=== PATIENT | male | born 1970 | race Caucasian/White ===

== ENCOUNTER 2024-12-26 12:06 | Inpatient (IN) | payer BC ==
[~2024-12-26] VITALS: Ht 177.8 cm; Wt 68.0 kg
[2024-12-26] MEDS: IV NS 0.9% 1,000 ML BAG IV ONE (12:55)
[2024-12-26 13:04] LABS: BASOPHILS % (AUTO) 0.2 % (0.0-2.0); EOSINOPHILS % (AUTO) 0.4 % (0.0-6.0); HEMATOCRIT 30 % (39-51); HEMOGLOBIN 9.4 g/dL (13.5-17.5); MEAN CORPUSCULAR HEMOGLOBIN 24 PG (26.0-33.0); MEAN CORPUSCULAR HGB CONC 32 g/dl (31.0-36.0); MEAN CORPUSCULAR VOLUME 75 fL (80-96); MONOCYTES # (AUTO) 0.9 K/uL (0.1-1.30); NEUTROPHILS # (AUTO) 9.5 K/uL (1.8-8.9); NEUTROPHILS % (AUTO) 82.4 % (43.0-81.0); PLATELET COUNT (AUTO) 418 K/uL (150-450); RED BLOOD CELL COUNT(AUTO) 3.96 MIL/uL (4.5-6.0); RED CELL DISTRIBUTION WIDTH 16.6 % (11.5-15.0); WHITE BLOOD COUNT (AUTO) 11.5 K/uL (4.3-11.0)
[2024-12-26 13:15] LABS: CALCIUM, SERUM 8.4 mg/dL (8.5-10.1); POTASSIUM 4.2 mmol/L (3.5-5.1)
[2024-12-26] MEDS ORDERED: CT SWABBABLE VALVE TRANS SET 1 EA INFUS.SET MC ONE (13:28)
[2024-12-26] MEDS ORDERED: IV NS 0.9% 250 ML IV ONE ×2 (13:28→15:58)
[2024-12-26] MEDS ORDERED: IOHEXOL-300 100 ML VIAL IV ONE ×2 (13:28→15:57)
[2024-12-26 13:30] LABS: ALBUMIN 1.9 g/dL (3.4-5.0); BILIRUBIN,DIRECT 0.2 mg/dL (0.0-0.2); BILIRUBIN,TOTAL 0.4 mg/dL (0.2-1.0); TOTAL PROTEIN, SERUM 6.6 g/dL (6.4-8.2)
[2024-12-26] MEDS ORDERED: AMLO5TAB4 PO (14:36)
[2024-12-26] MEDS ORDERED: Z GUARD REMEDY 4 OZ OINT TP PRN (15:30)
[2024-12-26] MEDS ORDERED: ACETAMINOPHEN 325 MG TABLET PO PRN (15:30)
[2024-12-26] MEDS ORDERED: MAG HYDROX/AL HYDROX/SIMETH 30 ML UDC PO PRN (15:30)
[2024-12-26] MEDS ORDERED: ONDANSETRON HCL/PF 4 MG/2 ML VIAL IVP PRN (15:30)
[2024-12-26] MEDS ORDERED: MAGNESIUM HYDROXIDE 30 ML UDC PO PRN (15:30)
[2024-12-26 15:49] LABS: APPEARANCE,URINE CLEAR (CLEAR); BILIRUBIN,URINE NEGATIVE (NEGATIVE); BLOOD, URINE NEGATIVE Ery/uL (NEGATIVE); COLOR,URINE YELLOW (YELLOW); KETONES,URINE NEGATIVE (NEGATIVE); LEUKOCYTE ESTERASE ,URINE NEGATIVE (NEGATIVE); NITRITE, URINE NEGATIVE (NEGATIVE); PROTEIN,URINE NEGATIVE (NEGATIVE); UGLUCOSE NEGATIVE (NEGATIVE); UROBILINOGEN,URINE 0.2 EU/dL (0.2)
[2024-12-26 16:26] VITALS: BP 126/79; TEMP 99.1; O2SAT 99
[2024-12-26] MEDS: IV NS 0.9% 1,000 ML IV PRN (17:08)
[2024-12-26] MEDS: ZOSYN IVPB 3.375 G in IV D5W 50ml IV SCH (17:38)
[2024-12-27 06:43] LABS: BASOPHILS % (AUTO) 0.2 % (0.0-2.0); EOSINOPHILS # (AUTO) 0.1 K/uL (0.0-0.7); EOSINOPHILS % (AUTO) 1.1 % (0.0-6.0); HEMATOCRIT 28 % (39-51); HEMOGLOBIN 8.9 g/dL (13.5-17.5); LYMPHOCYTES # (AUTO) 1.3 K/uL (0.8-4.8); LYMPHOCYTES % (AUTO) 11.1 % (20.0-44.0); MEAN CORPUSCULAR HEMOGLOBIN 23 PG (26.0-33.0); MEAN CORPUSCULAR HGB CONC 32 g/dl (31.0-36.0); MEAN CORPUSCULAR VOLUME 74 fL (80-96); NEUTROPHILS % (AUTO) 78.6 % (43.0-81.0); PLATELET COUNT (AUTO) 399 K/uL (150-450); RED BLOOD CELL COUNT(AUTO) 3.81 MIL/uL (4.5-6.0); RED CELL DISTRIBUTION WIDTH 16.7 % (11.5-15.0); WHITE BLOOD COUNT (AUTO) 11.5 K/uL (4.3-11.0)
[2024-12-27 07:13] LABS: CALCIUM, SERUM 8.5 mg/dL (8.5-10.1); CREATININE 0.9 mg/dL (0.6-1.3); MAGNESIUM 2.1 mg/dL (1.8-2.4); PHOSPHORUS 3.9 mg/dL (2.5-4.9); POTASSIUM 4.7 mmol/L (3.5-5.1)
[2024-12-27] MEDS: AMLODIPINE BESYLATE 5 MG TABLET PO SCH (08:47)
[2024-12-27 16:00] VITALS: BP 117/78; TEMP 98; O2SAT 99
[2024-12-27 17:47] LABS: INR 1.15 (0.91-1.10); PARTIAL THROMBOPLASTIN TIME 25.1 SEC (24.3-34.3); PROTHROMBIN TIME 12.1 SECS (9.2-11.1)
[2024-12-27 19:00] LABS: THYROID STIMULATING HORMONE 1.74 uIU/mL (0.358-3.74)
[2024-12-27] MEDS: LOPERAMIDE HCL (2 MG CAP) 2 MG CAPSULE PO PRN (21:06)
[2024-12-27 21:59] VITALS: BP 132/86; TEMP 99; O2SAT 97
[2024-12-28 04:51] VITALS: BP 110/69; TEMP 99.7; O2SAT 96
[2024-12-28 07:19] LABS: BASOPHILS % (AUTO) 0.3 % (0.0-2.0); EOSINOPHILS # (AUTO) 0.1 K/uL (0.0-0.7); EOSINOPHILS % (AUTO) 1.1 % (0.0-6.0); HEMATOCRIT 27 % (39-51); HEMOGLOBIN 8.7 g/dL (13.5-17.5); LYMPHOCYTES # (AUTO) 1.1 K/uL (0.8-4.8); LYMPHOCYTES % (AUTO) 11.1 % (20.0-44.0); MEAN CORPUSCULAR HEMOGLOBIN 24 PG (26.0-33.0); MEAN CORPUSCULAR HGB CONC 33 g/dl (31.0-36.0); MEAN CORPUSCULAR VOLUME 74 fL (80-96); NEUTROPHILS # (AUTO) 7.3 K/uL (1.8-8.9); NEUTROPHILS % (AUTO) 77.5 % (43.0-81.0); PLATELET COUNT (AUTO) 375 K/uL (150-450); RED BLOOD CELL COUNT(AUTO) 3.61 MIL/uL (4.5-6.0); RED CELL DISTRIBUTION WIDTH 16.4 % (11.5-15.0); WHITE BLOOD COUNT (AUTO) 9.5 K/uL (4.3-11.0)
[2024-12-28 07:46] LABS: CALCIUM, SERUM 8.1 mg/dL (8.5-10.1); CREATININE 0.9 mg/dL (0.6-1.3); PHOSPHORUS 4.1 mg/dL (2.5-4.9); POTASSIUM 3.8 mmol/L (3.5-5.1)
[2024-12-28 08:00] VITALS: BP 124/73; TEMP 98.3; O2SAT 95
[2024-12-28 16:00] VITALS: BP 122/78; TEMP 98.8; O2SAT 95
[2024-12-28] MEDS ORDERED: SOD FERRIC GLUC 125 MG in IV NS 0.9% 100 ML IV SCH (17:00)
[2024-12-28] MEDS: FERRLICET 125MG in 100 ML NS IVPB IV ONE (17:47)
[2024-12-28] MEDS: PEG 3350/NA SULF,BICARB,CL/KCL 4,000 ML BOTTLE PO ONE (18:26)
[2024-12-28 22:00] VITALS: BP 128/70; TEMP 98.2; O2SAT 99
[2024-12-29 04:00] VITALS: BP 120/60; TEMP 98.2; O2SAT 100
[2024-12-29] MEDS ORDERED: FENTANYL PF 100MCG/2ML AMPUL ONE (07:32)
[2024-12-29] MEDS ORDERED: MIDAZOLAM HCL 2 MG/2ML VIAL ONE (07:32)
[2024-12-29 09:57] VITALS: BP 110/82
[2024-12-29] MEDS ORDERED: ANESTHESIA TRAY IN PYXIS 1 EA TRAY MC ONE (09:59)
[2024-12-29] MEDS: FERRLICET 125MG in 100 ML NS IVPB IV SCH (14:32)
[2024-12-29 16:00] VITALS: BP 118/80; TEMP 98.2; O2SAT 98
[2024-12-29 21:06] VITALS: BP 116/76; TEMP 98.4; O2SAT 97
[2024-12-30 05:27] VITALS: BP 126/84; TEMP 98.6; O2SAT 97
[2024-12-30 07:06] LABS: IMMUNOGLOBULIN A, SERUM 414 mg/dL (90-386); IMMUNOGLOBULIN G, SERUM 1234 mg/dL (603-1613); IMMUNOGLOBULIN M, SERUM 37 mg/dL (20-172)
[2024-12-30 07:15] LABS: CALCIUM, SERUM 7.8 mg/dL (8.5-10.1); POTASSIUM 3.8 mmol/L (3.5-5.1)
[2024-12-30 07:28] LABS: BASOPHILS % (AUTO) 0.3 % (0.0-2.0); EOSINOPHILS # (AUTO) 0.2 K/uL (0.0-0.7); EOSINOPHILS % (AUTO) 2.4 % (0.0-6.0); HEMATOCRIT 27 % (39-51); HEMOGLOBIN 8.6 g/dL (13.5-17.5); LYMPHOCYTES # (AUTO) 1.3 K/uL (0.8-4.8); LYMPHOCYTES % (AUTO) 15.1 % (20.0-44.0); MEAN CORPUSCULAR HEMOGLOBIN 24 PG (26.0-33.0); MEAN CORPUSCULAR HGB CONC 32 g/dl (31.0-36.0); MEAN CORPUSCULAR VOLUME 74 fL (80-96); MONOCYTES # (AUTO) 0.7 K/uL (0.1-1.30); MONOCYTES % (AUTO) 8.5 % (2.0-12.0); NEUTROPHILS # (AUTO) 6.4 K/uL (1.8-8.9); NEUTROPHILS % (AUTO) 73.7 % (43.0-81.0); PLATELET COUNT (AUTO) 386 K/uL (150-450); RED BLOOD CELL COUNT(AUTO) 3.64 MIL/uL (4.5-6.0); RED CELL DISTRIBUTION WIDTH 16.8 % (11.5-15.0); WHITE BLOOD COUNT (AUTO) 8.6 K/uL (4.3-11.0)
[2024-12-30 08:00] VITALS: BP 124/87; TEMP 98.2; O2SAT 97
[2024-12-30 08:08] LABS: FOLIC ACID 14.5 ng/mL (>3.0)
[2024-12-30] MEDS ORDERED: ROPIVACAINE HCL 0.5% 5 MG/ML 30ML VIAL ONE (09:10)
[2024-12-30] MEDS ORDERED: MIDAZOLAM HCL 2 MG/2ML VIAL ONE (09:10)
[2024-12-30] MEDS ORDERED: FENTANYL PF 250MCG/5ML AMPUL ONE (09:10)
[2024-12-30] MEDS ORDERED: BUPIVACAINE 0.5 % PF 150 MG/30 ML VIAL ONE (09:28)
[2024-12-30] MEDS ORDERED: LIDOCAINE 1%-EPI 1:100,000 20 ML VIAL ONE (09:29)
[2024-12-30] MEDS ORDERED: HYDROMORPHONE 1 MG/1 ML DISP.SYRIN IV PRN ×3 (09:30→13:00)
[2024-12-30] MEDS ORDERED: METRONIDAZOLE 500MG/ NS 100ML 100 ML IV ONE (09:43)
[2024-12-30] MEDS ORDERED: BACITRACIN ZINC OINT (15 GM) 15 GM TUBE TP ONE (11:05)
[2024-12-30] MEDS ORDERED: PHYTONADIONE INJ 10 MG/1 ML AMPUL ONE (11:27)
[2024-12-30 16:00] VITALS: BP 111/80; TEMP 98.1; O2SAT 97
[2024-12-30 20:00] VITALS: BP 117/84; TEMP 98.2; O2SAT 99
[2024-12-30] MEDS ORDERED: POLYVINYL ALCOHOL 15 ML BOTTLE EACHEYE PRN (20:00)
[2024-12-30] MEDS: CELECOXIB 100 MG CAPSULE PO SCH (20:19)
[2024-12-30] MEDS: PANTOPRAZOLE 40 MG TABLET.DR PO SCH (20:20)
[2024-12-31] MEDS: IBUPROFEN 600 MG TABLET PO ONE (01:06)
[2024-12-31 04:00] VITALS: BP 131/93; TEMP 98.2; O2SAT 97
[2024-12-31 06:38] LABS: BASOPHILS % (AUTO) 0.2 % (0.0-2.0); EOSINOPHILS % (AUTO) 0.6 % (0.0-6.0); HEMATOCRIT 27 % (39-51); HEMOGLOBIN 8.9 g/dL (13.5-17.5); LYMPHOCYTES % (AUTO) 14.2 % (20.0-44.0); MEAN CORPUSCULAR HEMOGLOBIN 24 PG (26.0-33.0); MEAN CORPUSCULAR HGB CONC 33 g/dl (31.0-36.0); MEAN CORPUSCULAR VOLUME 74 fL (80-96); MONOCYTES # (AUTO) 0.5 K/uL (0.1-1.30); MONOCYTES % (AUTO) 7.4 % (2.0-12.0); NEUTROPHILS # (AUTO) 5.5 K/uL (1.8-8.9); NEUTROPHILS % (AUTO) 77.6 % (43.0-81.0); PLATELET COUNT (AUTO) 421 K/uL (150-450); RED BLOOD CELL COUNT(AUTO) 3.63 MIL/uL (4.5-6.0); RED CELL DISTRIBUTION WIDTH 16.5 % (11.5-15.0)
[2024-12-31 07:11] LABS: CALCIUM, SERUM 7.8 mg/dL (8.5-10.1); CREATININE 0.8 mg/dL (0.6-1.3); PHOSPHORUS 2.6 mg/dL (2.5-4.9); POTASSIUM 3.5 mmol/L (3.5-5.1)
[2024-12-31 07:12] LABS: FREE KAPPA LT CHAINS SERUM 39.7 mg/L (3.3-19.4); FREE LAMBDA LT CHAIN SERUM 48.7 mg/L (5.7-26.3); KAPPA/LAMBDA RATIO SERUM 0.82 (0.26-1.65)
[2024-12-31] MEDS: GABAPENTIN 100 MG CAPSULE PO SCH (10:02)
[2024-12-31 10:12] LABS: *SPE A/G RATIO 0.5 (0.7-1.7); *SPE ALPHA-1-GLOBULIN 0.5 g/dL (0.0-0.4); *SPE ALPHA-2-GLOBULIN 1.1 g/dL (0.4-1.0); *SPE BETA GLOBULIN 1.1 g/dL (0.7-1.3); *SPE GLOBULIN, TOTAL 3.8 g/dL (2.2-3.9); *SPE M-SPIKE Not Observed g/dL (Not Observed); *SPE PROTEIN TOTAL 5.8 g/dL (6.0-8.5); *SPEGAMMA GLOBULIN 1.1 g/dL (0.4-1.8)
[2024-12-31] MEDS: POTASSIUM CHLORIDE 20 MEQ TAB.PRT.SR PO ONE (10:23)
[2024-12-31] MEDS: FUROSEMIDE 40 MG TABLET PO ONE (10:23)
[2024-12-31 13:10] VITALS: BP 141/84; TEMP 98.4
[2024-12-31 16:00] VITALS: BP 134/93; TEMP 98.6
[2024-12-31] MEDS: ATENOLOL 50 MG TABLET PO SCH (16:28)
[2024-12-31 20:00] VITALS: BP 120/90; TEMP 98.2; O2SAT 98
[2025-01-01] MEDS: IV LR 1000 ML 1,000 ML IV PRN (00:23)
[2025-01-01] MEDS: IBUPROFEN 600 MG TABLET PO PRN (00:45)
[2025-01-01 04:18] VITALS: BP 113/84; TEMP 97.7; O2SAT 98
[2025-01-01 06:58] LABS: BASOPHILS % (AUTO) 0.4 % (0.0-2.0); EOSINOPHILS # (AUTO) 0.2 K/uL (0.0-0.7); EOSINOPHILS % (AUTO) 2.6 % (0.0-6.0); HEMATOCRIT 29 % (39-51); HEMOGLOBIN 9.2 g/dL (13.5-17.5); LYMPHOCYTES # (AUTO) 1.4 K/uL (0.8-4.8); LYMPHOCYTES % (AUTO) 21.8 % (20.0-44.0); MEAN CORPUSCULAR HEMOGLOBIN 24 PG (26.0-33.0); MEAN CORPUSCULAR HGB CONC 32 g/dl (31.0-36.0); MEAN CORPUSCULAR VOLUME 76 fL (80-96); MONOCYTES # (AUTO) 0.7 K/uL (0.1-1.30); MONOCYTES % (AUTO) 10.8 % (2.0-12.0); NEUTROPHILS # (AUTO) 4.2 K/uL (1.8-8.9); NEUTROPHILS % (AUTO) 64.4 % (43.0-81.0); PLATELET COUNT (AUTO) 450 K/uL (150-450); RED BLOOD CELL COUNT(AUTO) 3.85 MIL/uL (4.5-6.0); RED CELL DISTRIBUTION WIDTH 16.6 % (11.5-15.0); WHITE BLOOD COUNT (AUTO) 6.6 K/uL (4.3-11.0)
[2025-01-01 07:13] LABS: D-DIMER 2.98 mg/L(FEU (0.17-0.50); INR 1.22 (0.91-1.10); PARTIAL THROMBOPLASTIN TIME 27.3 SEC (24.3-34.3); PROTHROMBIN TIME 12.8 SECS (9.2-11.1)
[2025-01-01 07:20] LABS: CALCIUM, SERUM 8.6 mg/dL (8.5-10.1); CREATININE 0.8 mg/dL (0.6-1.3); POTASSIUM 4.1 mmol/L (3.5-5.1)
[2025-01-01 08:00] VITALS: BP 127/91; TEMP 98.1
[2025-01-01 16:00] VITALS: BP 112/79; TEMP 98.1
[2025-01-01 20:00] VITALS: BP 123/86; TEMP 98.2; O2SAT 98
[2025-01-02 04:00] VITALS: BP 126/86; TEMP 98.2; O2SAT 98
[2025-01-02 06:48] LABS: BASOPHILS % (AUTO) 0.5 % (0.0-2.0); EOSINOPHILS # (AUTO) 0.4 K/uL (0.0-0.7); EOSINOPHILS % (AUTO) 5.8 % (0.0-6.0); HEMATOCRIT 28 % (39-51); HEMOGLOBIN 8.7 g/dL (13.5-17.5); LYMPHOCYTES # (AUTO) 1.4 K/uL (0.8-4.8); LYMPHOCYTES % (AUTO) 21.4 % (20.0-44.0); MEAN CORPUSCULAR HEMOGLOBIN 24 PG (26.0-33.0); MEAN CORPUSCULAR HGB CONC 32 g/dl (31.0-36.0); MEAN CORPUSCULAR VOLUME 75 fL (80-96); MONOCYTES # (AUTO) 0.6 K/uL (0.1-1.30); MONOCYTES % (AUTO) 9.2 % (2.0-12.0); NEUTROPHILS # (AUTO) 4.1 K/uL (1.8-8.9); NEUTROPHILS % (AUTO) 63.1 % (43.0-81.0); PLATELET COUNT (AUTO) 430 K/uL (150-450); RED BLOOD CELL COUNT(AUTO) 3.67 MIL/uL (4.5-6.0); RED CELL DISTRIBUTION WIDTH 16.6 % (11.5-15.0); WHITE BLOOD COUNT (AUTO) 6.5 K/uL (4.3-11.0)
[2025-01-02 07:16] LABS: IRON, SERUM 40 ug/dl (50-175); TOTAL IRON BINDING CAPACITY 140 ug/dl (250-450)
[2025-01-02 07:24] LABS: CALCIUM, SERUM 8.7 mg/dL (8.5-10.1); CREATININE 0.9 mg/dL (0.6-1.3); MAGNESIUM 2.1 mg/dL (1.8-2.4); PHOSPHORUS 3.1 mg/dL (2.5-4.9); POTASSIUM 4.4 mmol/L (3.5-5.1)
[2025-01-02 07:28] LABS: FERRITIN 426 ng/mL (8-388)
[2025-01-02 08:00] VITALS: BP 126/91; TEMP 98.1; O2SAT 96
[2025-01-02 08:57] VITALS: BP 126/91
[2025-01-02] MEDS ORDERED: ATEN50TA PO (11:25)
[2025-01-02] MEDS ORDERED: IBUP-1955 PO (11:25)
[2025-01-02] MEDS ORDERED: PANT40TA49 PO (11:25)
[2025-01-03] MEDS ORDERED: ATENOLOL 50 MG TABLET PO SCH (09:00)
== END 2025-01-02 15:20 | disposition home or self-care (01) | DRG 330 ==
LOC: ER 12:22 → MEDSG1 15:29
PROVIDERS: ADMIT Internal Medicine; ATTEND Internal Medicine
PROC: 0DBH8ZX Excision of Cecum, Via Natural or Artificial Opening Endoscopic, Diagnostic (ICD-10-PCS; principal; 2024-12-29)
PROC: 0D1L0Z4 Bypass Transverse Colon to Cutaneous, Open Approach (ICD-10-PCS; 2024-12-30)
PROC: 0DTF0ZZ Resection of Right Large Intestine, Open Approach (ICD-10-PCS; 2024-12-30)
PROC: 0DNP0ZZ Release Rectum, Open Approach (ICD-10-PCS; 2024-12-30)
PROC: 0DNN0ZZ Release Sigmoid Colon, Open Approach (ICD-10-PCS; 2024-12-30)
DX: C18.0 Malignant neoplasm of cecum (principal); A09 Infectious gastroenteritis and colitis, unspecified; C77.2 Secondary and unspecified malignant neoplasm of intra-abdominal lymph nodes; E44.0 Moderate protein-calorie malnutrition; I10 Essential (primary) hypertension; K64.8 Other hemorrhoids; D50.9 Iron deficiency anemia, unspecified; K66.0 Peritoneal adhesions (postprocedural) (postinfection); D72.829 Elevated white blood cell count, unspecified; E88.09 Other disorders of plasma-protein metabolism, not elsewhere classified; D63.8 Anemia in other chronic diseases classified elsewhere; Z68.21 Body mass index [BMI] 21.0-21.9, adult
CPT/HCPCS: 36415; 71260-TC; 80048-TC; 80076-TC; 82378; 82607-TC; 82728-TC; 82784; 83540-TC; 83690-TC; 83735-TC; 84100-TC; 84155; 84165; 84443-TC; 85025-TC; 85396; 85610-TC; 85730-TC; 86334; 86850-TC; A4223; G0378; J0690; J1100; J1885; J2250; J2405; J2543; J2704; J2795; J2916; J3010; J3430; J3490; J7030; J7050; J7060; J7120; Q9967